=== PATIENT | male | born 1980 | race Caucasian/White ===

== ENCOUNTER 2025-06-18 21:06 | Emergency (ER) | payer MEDICAID ==
[~2025-06-18] VITALS: Ht 180.3 cm; Wt 103.4 kg
[2025-06-18 22:54] VITALS: BP 147/89; TEMP 97.5; O2SAT 98
== END 2025-06-18 22:55 | disposition left against medical advice (07) ==
LOC: ER 21:11
DX: R10.9 Unspecified abdominal pain (principal); R11.2 Nausea with vomiting, unspecified; V43.52XA Car driver injured in collision with other type car in traffic accident, initial encounter; Y93.89 Activity, other specified; Y92.488 Other paved roadways as the place of occurrence of the external cause; Y99.8 Other external cause status